=== PATIENT | male | born 1995 | race Caucasian/White ===

== ENCOUNTER 2019-12-24 21:00 | Emergency (ER) | payer SELFPAY ==
[~2019-12-24] VITALS: Ht 167 cm; Wt 95.2 kg
[2019-12-24] MEDS ORDERED: RX-DICYCLOMINE 10 MG (BENTYL) CAP PPK#4 PO STA (21:20)
[2019-12-24] MEDS ORDERED: HYOSCYAMINE 0.125 MG (LEVSIN) TAB SL ONE (21:30)
[2019-12-24] MEDS ORDERED: LIDOCAINE 2% VISCOUS 15 ML UDC PO ONE (21:30)
[2019-12-24] MEDS ORDERED: ANTACID SUSP 30 ML UDC (MYLANTA) PO ONE (21:30)
--- NOTE | 2019-12-24 21:37 | ED GI ---
General Chief Complaint: Abdominal/GI Problems Stated Complaint: SEVERE STOMACH PAIN Nursing Triage Note: Pt ambulates to RM 6 with c/o epigastric pain x 1 hr after eating 3 "carolina reaper peppers" approx 1600. Pt states he vomited shortly after eating the peppers then took pepto-bismol with minimal relief. Sepsis Screen: No Definite Risk History of Present Illness Date Seen by Provider: Dec 24, 2019 Time Seen by Provider: 21:15 Initial Comments 24-year-old male presents for Periumbilical abdominal discomfort after eating 3 Carolina Reaper peppers approximately 3-4 hours ago from a dare. He has eaten them in the past but usually with Salsa. He caused vomiting about 1 hour ago and took Pepto Bismal with no improvement. Patient reports a history of hypertension, however he does not take his medication as prescribed. Patient pacing in room. Timing/Duration: 1-3 Hours Severity/Quality: Moderate Location: Periumbilical Associated Symptoms: Heartburn Allergies and Home Medications Allergies Coded Allergies: No Known Drug Allergies (Unverified , 12/24/19) Patient Home Medication List Home Medication List Reviewed: Yes Review of Systems Review of Systems Constitutional: no symptoms reported, see HPI Gastrointestinal: See HPI, Abdominal Pain All Other Systems Reviewed Negative Unless Noted: Yes Past Pyggzoo-Oykqfo-Kzdjpq Hx Past Med/Social Hx: Reviewed Nursing Past Med/Soc Hx Patient Social History Alcohol Use: Rarely Uses Recreational Drug Use: No Smoking Status: Current Everyday Smoker Type Used: Cigarettes 2nd Hand Smoke Exposure: No Recent Foreign Travel: No Contact w/Someone Who Travel: No Recent Infectious Disease Expo: No Recent Hopitalizations: No Physical Abuse: No Sexual Abuse: No Mistreated: No Fear: No Seasonal Allergies Seasonal Allergies: No Past Medical History Surgeries: Yes (skin graft right calf ) Orthopedic Respiratory: No Cardiac: Yes Hypertension Neurological: No Genitourinary: No Gastrointestinal: No Musculoskeletal: No Endocrine: No HEENT: No Cancer: No Psychosocial: No Integumentary: No Blood Disorders: No Physical Exam Vital Signs Vital Signs - First Documented 12/24/19 21:11 Temp 37.0 Pulse 86 Resp 19 B/P (MAP) 188/163 (171) Pulse Ox 100 O2 Delivery Room Air Capillary Refill : Less Than 3 Seconds Height/Weight/BMI Height: '" Weight: lbs. oz. kg; 34.00 BMI Method: General Appearance: WD/WN, mild distress (secondary to pain) Gastrointestinal: normal bowel sounds, non tender, soft; No distended, No guarding, No rebound, No tenderness Neurologic/Psychiatric: no motor/sensory deficits, alert, normal mood/affect, oriented x 3 Progress/Results/Core Measures Results/Orders My Orders Orders - JEFFERSON BYRNE Lidocaine 2% Viscous 15 Ml (Xylocaine Vi (12/24/19 21:30) Antacid Suspension (Mylanta Suspension (12/24/19 21:30) Rx-Dicyclomine Capsule (Rx-Bentyl Capsul (12/24/19 21:20) Hyoscyamine Sl Tablet (Levsin Sl Tablet) (12/24/19 21:30) Medications Given in ED Current Medications Medications Dose Ordered Sig/Mony Route Start Time Stop Time Status Last Admin Dose Admin Al Hydrox/Mg Hydrox/Simethicone 30 ml ONCE ONCE PO 12/24/19 21:30 12/24/19 21:31 DC 12/24/19 21:27 30 ML Hyoscyamine Sulfate 0.125 mg ONCE ONCE SL 12/24/19 21:30 12/24/19 21:31 DC 12/24/19 21:27 0.125 MG Lidocaine HCl 15 ml ONCE ONCE PO 12/24/19 21:30 12/24/19 21:31 DC 12/24/19 21:27 15 ML Vital Signs/I&O 12/24/19 12/24/19 21:11 22:05 Temp 37.0 37.0 Pulse 86 86 Resp 19 19 B/P (MAP) 188/163 (171) 180/94 (171) Pulse Ox 100 100 O2 Delivery Room Air Blood Pressure Mean: 171 Progress Progress Note : Time: 21:15 Progress Note Patient seen and evaluated, will give GI cocktail and Levsin. 2129 Patient drank 2 cartons of milk. 2139 Patient reports less pain. Discharge instructions and return precautions reviewed with the patient in detail. All questions answered. Departure Impression Primary Impression: Abdominal pain Qualified Codes: R10.33 - Periumbilical pain Disposition: HOME, SELF-CARE Condition: Improved Departure-Patient Inst. Decision time for Depature: 21:40 [place] [facility] [place]ructions: Acute Abdomen (Belly Pain), Adult (DC) Add. Discharge Instructions: Increase water intake, 16 oz every 2 hours while awake. Clear liquid diet for 4-6 hours, then bland diet. Avoid Carolina Reaper peppers. Take over the counter Pepcid and Prilosec 1 tablet (each) twice daily. Milk of Magnesia can be taken twice daily, to aid in passing stool quicker. May take Levsin, 1 tablet every 4-6 hours for abdominal pain. Follow up with your primary care provider, for management of your hypertension. Return to the ER for new, urgent health care needs. All discharge instructions reviewed with patient and/or family. Voiced understanding. JEFFERSON BYRNE Dec 24, 2019 21:37
[2019-12-24 22:05] VITALS: BP 180/94
== END 2019-12-24 22:07 | disposition home or self-care (01) ==
LOC: ER 21:03
DX: R10.33 Periumbilical pain (principal); I10 Essential (primary) hypertension; F17.210 Nicotine dependence, cigarettes, uncomplicated; Z91.14 Patient's other noncompliance with medication regimen
CPT/HCPCS: 99283

== ENCOUNTER 2023-04-23 07:04 | Emergency (ER) | payer BC ==
[~2023-04-23] VITALS: Ht 170 cm; Wt 117.0 kg
[2023-04-23 07:29] LABS: BILIRUBIN,URINE NEGATIVE (NEGATIVE); CLARITY,URINE CLEAR; COLOR,URINE YELLOW; GLUCOSE, URINE (UA) NEGATIVE (NEGATIVE); KETONES,URINE NEGATIVE (NEGATIVE); LEUKOCYTE ESTERASE ,URINE NEGATIVE (NEGATIVE); NITRITE,URINE NEGATIVE (NEGATIVE); PROTEIN,URINE NEGATIVE (NEGATIVE)
[2023-04-23 07:38] LABS: BACTERIA,URINE NEGATIVE /HPF; SQUAMOUS EPITHELIAL CELL,UR RARE /HPF; WBC,URINE RARE /HPF
[2023-04-23] MEDS ORDERED: fentaNYL INJ 100 MCG/2 ML AMP IVP ONE (08:00)
--- NOTE | 2023-04-23 08:05 | ED GU-Male ---
General Chief Complaint: - Reproductive Stated Complaint: TESTICULAR PAIN Nursing Triage Note: ARRIVED VIA AMB WITH COMPLAINTS LEFT SIDED TESTICAL PAIN THAT RADIATES INTO HIS ABD. PAIN STARTED ON SATURDAY. PT STATES HIS URINE IS DARK. Source: patient Exam Limitations: no limitations History of Present Illness Date Seen by Provider: Apr 23, 2023 Time Seen by Provider: 07:25 Initial Comments This 28-year-old young man presents to the emergency room with complaints of left-sided testicular pain that radiates up into his left lower quadrant. Symptoms started Saturday, approximately 36 hours ago, as he was packing up from a camping trip. He was lifting items and turning to place them in the vehicle when symptoms started. He had 1 prior episode of similar pain that lasted a few hours and resolved with "massaging it out." He denies any dysuria or hematuria. He has noted no pain or blood with ejaculate. There is no erythema or swelling. He noted dark urine in the nurses triage. His primary care provider is Dr. COATES in [facility]. Patient is in significant distress with any movement. Allergies and Home Medications Allergies Coded Allergies: Penicillins (Verified Allergy, Unknown, 04/23/23) Patient Home Medication List Home Medication List Reviewed: Yes Levofloxacin (Levofloxacin) 500 Mg Tablet, 500 MG PO DAILY Prescribed by: EDITH PIÑA on 04/23/23 0830 Review of Systems Review of Systems Constitutional: no symptoms reported EENTM: no symptoms reported Respiratory: no symptoms reported Cardiovascular: no symptoms reported Gastrointestinal: no symptoms reported Genitourinary: see HPI Musculoskeletal: no symptoms reported Skin: no symptoms reported Psychiatric/Neurological: No Symptoms Reported Endocrine: No Symptoms Reported Past Aejqpyo-Hmpgns-Dmlnbs Hx Patient Social History Tobacco Use?: Yes Tobacco type used: Cigarettes Smoking Status: Current Everyday Smoker Substance use?: No Alcohol Use?: Yes Alcohol Frequency: Once in a while Seasonal Allergies Seasonal Allergies: No Past Medical History Surgeries: Yes (skin graft right calf ) Abdominal (Hiatal hernia repair, umbilical hernia repair), Orthopedic Respiratory: No Cardiac: Yes Hypertension Neurological: No Genitourinary: No Gastrointestinal: No Musculoskeletal: No Endocrine: No HEENT: No Cancer: No Psychosocial: No Integumentary: No Blood Disorders: No Physical Exam Vital Signs Vital Signs - First Documented 04/23/23 07:10 Temp 37.9 Pulse 104 Resp 16 B/P (MAP) 135/84 (101) Pulse Ox 97 O2 Delivery Room Air Capillary Refill : Less Than 3 Seconds Height, Weight, BMI Height: '" Weight: lbs. oz. kg; 40.00 BMI Method: General Appearance: WD/WN, moderate distress HEENT: normal ENT inspection Cardiovascular: regular rate, rhythm, no edema, no murmur Respiratory: lungs clear, normal breath sounds, no respiratory distress Gastrointestinal: normal bowel sounds, soft; No distended; tenderness (Left lower quadrant); No hernia Male: testicular tenderness (Left), other (Patient has low hanging loose testicles. The left testicle is exquisitely tender to palpation. There appears to be no erythema, edema, or masses. There is no apparent hernia in the inguinal canal or scrotum) Extremities: normal inspection Neurologic/Psychiatric: no motor/sensory deficits, alert, normal mood/affect, oriented x 3 Skin: normal color, warm/dry Progress/Results/Core Measures Suspected Sepsis SIRS Temperature: Pulse: 104 Respiratory Rate: 16 Laboratory Tests 04/23/23 07:45: White Blood Count 12.0H Blood Pressure 135 /84 Mean: 101 Laboratory Tests 04/23/23 07:45: Creatinine 0.86, Platelet Count 249 Results/Orders Lab Results Laboratory Tests Test 04/23/23 07:20 04/23/23 07:45 Range/Units Urine Color YELLOW Urine Clarity CLEAR Urine pH 6.0 5-9 Urine Specific [place] 1.025 H 1.016-1.022 Urine Protein NEGATIVE NEGATIVE Urine Glucose (UA) NEGATIVE NEGATIVE Urine Ketones NEGATIVE NEGATIVE Urine Nitrite NEGATIVE NEGATIVE Urine Bilirubin NEGATIVE NEGATIVE Urine Urobilinogen 0.2 < = 1.0 MG/DL Urine Leukocyte Esterase NEGATIVE NEGATIVE Urine RBC (Auto) NEGATIVE NEGATIVE Urine RBC NONE /HPF Urine WBC RARE /HPF Urine Squamous Epithelial Cells RARE /HPF Urine Crystals NONE /LPF Urine Bacteria NEGATIVE /HPF Urine Casts NONE /LPF Urine Mucus SMALL H /LPF Urine Culture Indicated NO Urine Chlamydia trachomatis RNA Not Detected Not Detected Urine Neisseria gonorrhoeae RNA Not Detected Not Detected White Blood Count 12.0 H 4.3-11.0 10^3/uL Red Blood Count 4.82 4.30-5.52 10^6/uL Hemoglobin 14.8 13.3-17.7 g/dL Hematocrit 42 40-54 % Mean Corpuscular Volume 87 80-99 fL Mean Corpuscular Hemoglobin 31 25-34 pg Mean Corpuscular Hemoglobin Concent 35 32-36 g/dL Red Cell Distribution Width 11.9 10.0-14.5 % Platelet Count 249 130-400 10^3/uL Mean Platelet Volume 10.1 9.0-12.2 fL Immature Granulocyte % (Auto) 0 % Neutrophils (%) (Auto) 79 H 42-75 % Lymphocytes (%) (Auto) 11 L 12-44 % Monocytes (%) (Auto) 9 0-12 % Eosinophils (%) (Auto) 0 0-10 % Basophils (%) (Auto) 0 0-10 % Neutrophils # (Auto) 9.5 H 1.8-7.8 10^3/uL Lymphocytes # (Auto) 1.3 1.0-4.0 10^3/uL Monocytes # (Auto) 1.1 H 0.0-1.0 10^3/uL Eosinophils # (Auto) 0.0 0.0-0.3 10^3/uL Basophils # (Auto) 0.0 0.0-0.1 10^3/uL Immature Granulocyte # (Auto) 0.0 0.0-0.1 10^3/uL Sodium Level 138 135-145 MMOL/L Potassium Level 4.1 3.6-5.0 MMOL/L Chloride Level 108 H 98-107 MMOL/L Carbon Dioxide Level 22 21-32 MMOL/L Anion Gap 8 5-14 MMOL/L Blood Urea Nitrogen 6 L 7-18 MG/DL Creatinine 0.86 0.60-1.30 MG/DL Estimat Glomerular Filtration Rate 122 BUN/Creatinine Ratio 7 Glucose Level 95 70-105 MG/DL Calcium Level 8.8 8.5-10.1 MG/DL C-Reactive Protein High Sensitivity 3.47 H 0.00-0.50 MG/DL My Orders Orders - EDITH SIMONS MD Ua Culture If Indicated (04/23/23 07:25) Us Scrotum (Testicle) [id number] (04/23/23 07:44) Ed Iv/Invasive Line Start (04/23/23 07:49) Fentanyl Inj (Sublimaze Injection) (04/23/23 08:00) Ketorolac Injection (Toradol Injection) (04/23/23 08:30) Chlamydia Trachomatis Urine (04/23/23 08:18) Neis Eb Dna Urine Test (04/23/23 08:18) Ceftriaxone Iv/Im (Rocephin Iv/Im) (04/23/23 08:24) Levofloxacin Tablet (Levaquin Tablet) (04/23/23 08:30) Basic Metabolic Panel (04/23/23 09:09) Cbc With Automated Diff (04/23/23 09:09) Hs C Reactive Protein (04/23/23 09:09) Urine Culture (04/23/23 09:11) Hydrocodone/Apap 5/325 Tablet (Lortab 5 (04/23/23 10:30) Medications Given in ED Vital Signs/I&O 04/23/23 04/23/23 07:10 11:03 Temp 37.9 Pulse 104 76 Resp 16 16 B/P (MAP) 135/84 (101) 130/76 Pulse Ox 97 98 O2 Delivery Room Air Room Air Capillary Refill : Less Than 3 Seconds Blood Pressure Mean: 101 Progress Note #1: Time: 08:04 Progress Note Patient has been interviewed and examined. Urinalysis was unremarkable by my interpretation. There is no evidence of pyuria or hematuria. IV was established and patient was treated with fentanyl 100 mcg IV. Ultrasound has been ordered and pending. I did inform the a&p technician that this was an emergent ultrasound to rule out testicular torsion. Progress Note #2: Progress Note Ultrasound results were discussed with the satellite tv technician installer. No evidence of torsion was identified. There did appear to be epididymo-orchitis on the left and some possible epididymo-orchitis developing on the right. I discussed the situation with Dr. Gates, urologist at [facility] at 0915. We discussed the situation as patient had had multiple episodes of this type of pain. Given the ultrasound findings, it is most likely that this is an infectious process, especially with the elevation in WBC and CRP noted on labs. Labs were obtained to help differentiate the pathology. Cultures were ordered for urine and STIs. Patient was treated accordingly with Rocephin and Levaquin. He was discharged with a prescription for Levaquin. Patient's pain did rebound as fentanyl was wearing off. It is important to note that pain was really only significant with movement or palpation of the testicle and was not present to a significant degree at rest. Patient was additionally treated with Toradol. He was advised if he ever had any sudden onset of testicular pain in the future that he must present to and ER immediately. He was referred to prompt follow-up with Dr. Gates. See discharge instructions for further discussion. Diagnostic Imaging Diagonstic Imaging: Ultrasound Plain Films/CT/US/NM/MRI: other (scrotum) Comments NAME: KEYONA FRIAS [facility] REC#: [id number] PT STATUS: DEP ER : 1995 PHYSICIAN: EDITH SIMONS MD ADMIT DATE: 04/23/23/ER Signed Date of Exam:04/23/23 US SCROTUM (Testicle) [id number] US SCROTUM (Testicle) [id number] TECHNIQUE: Pan-scale, color doppler and spectral duplex imaging of the scrotum and its contents was performed. INDICATION: Left testicular pain. COMPARISON: None available. FINDINGS: Right: The right testis is normal in size measuring 4.2 x 2.0 x 3.8 cm. It has homogenous echogenicity without mass or microcalcification. Blood flow is present in the right testis by color doppler imaging, and low resistance waveforms are present. A small cyst is present in the epididymal head measuring 0.5 x 0.3 cm. Normal blood flow throughout the epididymis. No hydrocele or varicole. Left: The left testis is normal in size measuring 3.5 x 3.4 x 4.2 cm. It has homogenous echogenicity without mass or microcalcification. Marked hypervascularity is present throughout the left testicle. Increased vascularity throughout the epididymis is also present. No hydrocele or varicole. IMPRESSION: 1. Acute epididymitis-orchitis on the left. Dictated by: Dictated on workstation # [id number] Dict: 04/23/23917 Trans: 04/23/23 1148 [facility] [id number] Interpreted by: PATITO ELKINS MD Electronically signed by: PATITO ELKINS MD 04/23/23 1148 Departure Impression Primary Impression: Epididymo-orchitis Disposition: 01 HOME, SELF-CARE Condition: Improved Departure-Patient Inst. Decision time for Depature: 08:25 Referrals: NO,LOCAL PHYSICIAN (PCP/Family) Primary Care Physician Patient Instructions: Epididymitis, Testicular Torsion, Adult Add. Discharge Instructions: Complete your antibiotics as prescribed. Start this prescription tomorrow morning. Follow-up with Dr. COATES after 48 hours to review culture results. Please call his office today to schedule an appointment. If you are unable to follow-up with Dr. COATES, you may call the emergency room on Saturday to obtain culture results. You also need to follow-up with a urologist as soon as possible. You may follow-up with Dr. Gates through the [facility] in [place]. His phone number is [phone]. You may alternatively follow-up with the urologist of your choice. You may wish to check with your insurance carrier to determine if they have preferred urology providers before you schedule follow-up. For pain, take ibuprofen up to 600 mg every 6 hours as needed. Add either hydrocodone as prescribed or Tylenol (acetaminophen) up to 1000 mg every 6 hours as needed for additional pain control. Do not take both Tylenol and hydrocodone as hydrocodone contains Tylenol. No sexual activity or intercourse of any kind until you review culture results a nd are cleared by a physician to resume sexual activity. Return to the emergency room if you have worsening symptoms despite following these instructions or develop new symptoms such as fever. If you ever have recurrent symptoms of this nature involving testicular pain, please present to the emergency room immediately. If you have a testicular torsion (twisting of the testicle), that is an emergency that needs to be addressed immediately. All discharge instructions reviewed with patient and/or family. Voiced understanding. Scripts Levofloxacin (Levofloxacin) 500 Mg Tablet 500 MG PO DAILY, #9 TAB Prov: EDITH SIMONS MD 04/23/23 Work/School Note: Work Release Form Date Seen in the Emergency Department: Apr 23, 2023 Return to Work: Apr 26, 2023 Restrictions: No Restrictions Copy Copies To 1: NISHANT COATES JOSHUA T MD Apr 23, 2023 08:05
[2023-04-23] MEDS ORDERED: cefTRIAXone IV/IM 1,000 MG in NS (IVPB) 50 ML IV STA (08:24)
[2023-04-23] MEDS ORDERED: KETOROLAC 30 MG/ML VIAL IVP ONE (08:30)
[2023-04-23] MEDS ORDERED: LEVO-55 PO (08:30)
[2023-04-23 09:14] LABS: BASOPHILS % (AUTO) 0 % (0-10); EOSINOPHILS % (AUTO) 0 % (0-10); HEMATOCRIT 42 % (40-54); HEMOGLOBIN 14.8 g/dL (13.3-17.7); LYMPHOCYTES # (AUTO) 1.3 10^3/uL (1.0-4.0); LYMPHOCYTES % (AUTO) 11 % (12-44); MEAN CORPUSCULAR HEMOGLOBIN 31 pg (25-34); MEAN CORPUSCULAR HGB CONC 35 g/dL (32-36); MEAN CORPUSCULAR VOLUME 87 fL (80-99); MEAN PLATELET VOLUME 10.1 fL (9.0-12.2); MONOCYTES # (AUTO) 1.1 10^3/uL (0.0-1.0); MONOCYTES % (AUTO) 9 % (0-12); NEUTROPHILS # (AUTO) 9.5 10^3/uL (1.8-7.8); NEUTROPHILS % (AUTO) 79 % (42-75); PLATELET COUNT 249 10^3/uL (130-400)
[2023-04-23 09:19] LABS: POTASSIUM 4.1 MMOL/L (3.6-5.0)
[2023-04-23 09:20] LABS: CALCIUM 8.8 MG/DL (8.5-10.1)
[2023-04-23 09:24] LABS: CREATININE SERUM 0.86 MG/DL (0.60-1.30)
--- NOTE | 2023-04-23 09:25 | Diagnostic Imaging Report ---
US SCROTUM (Testicle) [id number] TECHNIQUE: Pan-scale, color doppler and spectral duplex imaging of the scrotum and its contents was performed. INDICATION: Left testicular pain. COMPARISON: None available. FINDINGS: Right: The right testis is normal in size measuring 4.2 x 2.0 x 3.8 cm. It has homogenous echogenicity without mass or microcalcification. Blood flow is present in the right testis by color doppler imaging, and low resistance waveforms are present. A small cyst is present in the epididymal head measuring 0.5 x 0.3 cm. Normal blood flow throughout the epididymis. No hydrocele or varicole. Left: The left testis is normal in size measuring 3.5 x 3.4 x 4.2 cm. It has homogenous echogenicity without mass or microcalcification. Marked hypervascularity is present throughout the left testicle. Increased vascularity throughout the epididymis is also present. No hydrocele or varicole. IMPRESSION: 1. Acute epididymitis-orchitis on the left. Dictated by: Dictated on workstation # [id number]
[2023-04-23] MEDS ORDERED: CLINDAMYCIN 900 MG/50 ML IVPB 50 ML IV ONE (09:45)
[2023-04-23] MEDS ORDERED: hydrALAZINE (APESOLINE) 20 MG/ML VIAL IV ONE (10:00)
[2023-04-23] MEDS ORDERED: TETANUS,DIPTH,PERTUSS P/F (BOOSTRIX) 0.5 ML VIAL IM ONE (10:00)
[2023-04-23] MEDS ORDERED: HYDROcodone/APAP 5 MG/325 MG (LORTAB) TAB PO ONE (10:30)
[2023-04-23 11:03] VITALS: BP 130/76
== END 2023-04-23 11:03 | disposition home or self-care (01) ==
LOC: EDUNIT# 07:04 → ER 07:07
DX: N45.3 Epididymo-orchitis (principal); F17.210 Nicotine dependence, cigarettes, uncomplicated; Z88.0 Allergy status to penicillin
CPT/HCPCS: 36415; 76870; 80048; 81000; 85025; 86141; 87088; 87491; 87591